=== PATIENT | female | born 1980 | race Hispanic/Latino ===

== ENCOUNTER → 2019-07-22 | Outpatient (CLI) | payer BC | LOC: EDSTATUS 00:39 → EDH 04:00 → DAH 04:00 → EDH 04:20 | PROVIDERS: ATTEND Emergency Medicine | DX: R79.89 Other specified abnormal findings of blood chemistry (principal); R88.8 Abnormal findings in other body fluids and substances | CPT/HCPCS: 36415 ==

== ENCOUNTER 2021-08-20 06:39 | Day surgery (SDC) | payer BC ==
[2021-08-13 09:17] LABS: BASOPHILS % (AUTO) 0.5 % (0.0-5.0); EOSINOPHILS % (AUTO) 4.1 % (0.0-8.0); HEMATOCRIT 42.2 % (36-48); LYMPHOCYTES % (AUTO) 24.6 % (21.0-51.0); MEAN CORPUSCULAR HEMOGLOBIN 30.2 pg (27.0-33.0); MEAN CORPUSCULAR HGB CONC 33.4 g/dL (32.0-36.0); MEAN CORPUSCULAR VOLUME 90.4 fL (79-99); NEUTROPHILS % (AUTO) 64.3 % (40.0-77.0); PLATELET COUNT (AUTO) 261 K/uL (130-400); RED BLOOD CELL COUNT(AUTO) 4.67 MIL/uL (4.00-5.50); WHITE BLOOD COUNT (AUTO) 8.4 K/uL (4.8-10.8)
[2021-08-13 09:33] LABS: CREATININE 0.9 mg/dL (0.5-1.5); PROTHROMBIN TIME 10.9 SEC (9.6-11.6)
[2021-08-13 09:34] LABS: PARTIAL THROMBOPLASTIN TIME 26.5 SEC (26.3-35.5)
[2021-08-15] MEDS: CEFAZOLIN SODIUM 1 GM VIAL IVP SCH (13:30)
[2021-08-19 10:15] VITALS: BP 125/74
[~2021-08-20] VITALS: Ht 154.9 cm; Wt 88.5 kg
[2021-08-20] VITALS (17 sets, daily range): BP systolic 99–133; BP diastolic 61–95
[2021-08-20] MEDS ORDERED: LACTATED RINGERS 1000ML 1,000 ML IV ONE (06:57)
[2021-08-20] MEDS ORDERED: LIDOCAINE PF 100MG/5ML (2%) SYRINGE 5ML ONE (10:36)
[2021-08-20] MEDS ORDERED: DEXAMETHASONE SOD PHOSPHATE 4 MG/ML 1ML VIAL ONE (10:36)
[2021-08-20] MEDS ORDERED: ONDANSETRON 4MG INJ ONE (10:36)
[2021-08-20] MEDS ORDERED: PROPOFOL 10 MG/ML 20ML VIAL IV ONE (10:36)
[2021-08-20] MEDS ORDERED: GLYCOPYRROLATE 1 MG/5 ML SYRINGE ONE (10:36)
[2021-08-20] MEDS ORDERED: NEOSTIGMINE 5MG/5ML SYR IV ONE (10:36)
[2021-08-20] MEDS ORDERED: ROCURONIUM 10MG/1ML SYR 10 MG/ML ML ONE (10:37)
[2021-08-20] MEDS ORDERED: MIDAZOLAM HCL 1 MG/ML 2ML VIAL ONE (10:37)
[2021-08-20] MEDS ORDERED: FENTANYL CITRATE PF 50 MCG/1 ML 5ML AMP IV ONE ×2 (10:37→12:28)
[2021-08-20] MEDS ORDERED: LIDOCAINE HCL 1% 20 ML VIAL ONE (10:45)
[2021-08-20] MEDS ORDERED: BUPIVACAINE/PF 0.25% 10ML VIAL IJ ONE (10:46)
[2021-08-20] MEDS ORDERED: ROPIVACAINE 0.5% 5MG/ML 30ML IJ ONE (10:57)
[2021-08-20] MEDS: CEFAZOLIN SODIUM 1 GM VIAL IVP SCH (11:18)
[2021-08-20] MEDS ORDERED: MEPERIDINE-PF 25 MG/ML SYG ONE (14:23)
[2021-08-20] MEDS ORDERED: GABA-529 PO (14:39)
== END 2021-08-20 15:45 | disposition home or self-care (01) ==
LOC: DAH 06:39
PROVIDERS: ATTEND Student in an Organized Health Care Education/Training Program
DX: K80.10 Calculus of gallbladder with chronic cholecystitis without obstruction (principal); Z20.822 Contact with and (suspected) exposure to COVID-19; Z79.01 Long term (current) use of anticoagulants; Z98.51 Tubal ligation status; Z98.890 Other specified postprocedural states; Z79.899 Other long term (current) drug therapy
CPT/HCPCS: 47562; S2900; 36415; 80048; 85025; 85610; 85730; 87635; C9803; J0690; J1100; J2001; J2175; J2250; J2405; J2704; J2710; J2795; J3010; J3490; J7030; J7120